=== PATIENT | female | born 1970 | race Caucasian/White ===

== ENCOUNTER → 2024-01-19 07:47 | Outpatient (CLI) | payer SELFPAY ==
--- NOTE | 2024-01-19 07:54 | DI.US.S_ITS ---
PROCEDURE: US THYROID INDICATIONS: HISTORY OF MALIGNANT THYROID CANCER/LEFT THYROIDECTOMY TECHNIQUE: Real-time scanning was performed of the thyroid gland, with image documentation. COMPARISON: None. FINDINGS: Thyroid: Right lobe measures 5.4 x 1.9 x 1.9 cm. Left lobe is absent. Isthmus is 0.3 cm thick. Echotexture is homogeneous. No suspicious mass within the left thyroidectomy bed. No adenopathy in the left neck. Normal right central chain lymph nodes which maintain a normal reniform shape, favoring a benign etiology. IMPRESSION: Left thyroidectomy, without evidence local recurrence. Dictated by: Hang Stover M.D. on 01/19/2024 at 11:16 Approved by: Hang Stover M.D. on 01/19/2024 at 11:17
--- NOTE | 2024-01-19 08:27 | DI.CT.S_ITS ---
PROCEDURE: CT CHEST W CON INDICATIONS: Malignant neoplasm of thyroid gland; TECHNIQUE: After the administration of intravenous contrast, 5 mm thick sections acquired from the pulmonary apices to the posterior costophrenic angles. 1 mm axial lung, 5 mm thick coronal and sagittal reformats and 7 mm axial MIP were acquired. For radiation dose reduction, the following was used: automated exposure control, adjustment of mA and/or kV according to patient size. COMPARISON: None. FINDINGS: Image quality: Diagnostic. Lower Neck: No enlarged lymph nodes. Thyroid: Left thyroidectomy. Axillae: No enlarged lymph nodes. Chest Wall: Unremarkable. Bones: Unremarkable. Lungs and Pleura: No pneumothorax or pleural effusions. Volume loss and bronchiectasis with tree-in-bud nodules in the lingula and right middle lobe. Small number of centrilobular nodules in the dependent lower lobes, largest measuring 5 millimeters in the left lower lobe (series 3, image 316). Bronchial secretions. Heart: Heart size is normal. No pericardial effusion. Thoracic Vessels: The aorta and pulmonary arteries demonstrate normal size. Mediastinum and Mary: No enlarged lymph nodes. Esophagus: No wall thickening. No hiatal hernia. Upper Abdomen: Visualized upper abdomen solid organs and bowel loops appear normal. IMPRESSION: Left thyroidectomy. 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 Superimposed centrilobular nodules in the dependent lower lobes, also likely representing infectious or inflammatory bronchiolitis. Three-month follow-up could be obtained to exclude pulmonary metastatic disease. Dictated by: Hang Stover M.D. on 01/19/2024 at 11:09 Approved by: Hang Stover M.D. on 01/19/2024 at 11:15
== END ==
PROVIDERS: Family Provider Internal Medicine; PCP Family Medicine; Referring Provider Family Medicine; Visit Provider Family Medicine
DX: C73 Malignant neoplasm of thyroid gland (principal); R91.8 Other nonspecific abnormal finding of lung field; E04.1 Nontoxic single thyroid nodule; J47.9 Bronchiectasis, uncomplicated
CPT/HCPCS: 71260; 76536; Q9967

== ENCOUNTER 2024-03-22 10:25 | Day surgery (SDC) | payer SELFPAY ==
[2024-03-22 10:59] VITALS: BP 134/83; PULSE 70; RESP 14; TEMP 36.8; O2SAT 95
[2024-03-22] MEDS: LACTATED RINGERS 1,000 ML 42 ML IV (11:06)
--- NOTE | 2024-03-22 11:27 | PM.PREOP ---
Pre-operative Note Interval Note History & Physical reviewed/Exam performed by Physician: Yes Changes to H&P: No ASA Class (for procedural sedation): II
--- NOTE | 2024-03-22 11:43 | PM.OP.COLON ---
Operative Date/Time/Diagnoses Date of procedure: 03/22/24 Pre-op diagnosis: See indication and findings Procedure & Clinicians Study performed: Colonoscopy Indications: History of ?polyps? 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 She has been getting yearly colonoscopies since. Surgeon: Rolando Garces Procedure Notes Procedure in detail: After informed consent was obtained the patient was placed in left lateral decubitus position. The video colonoscope was introduced the rectum slowly advanced cecum. Preparation was excellent. On slow withdrawal mucosa was carefully examined. The scope was removed. The patient tolerated procedure well. Blood loss none Complications none Sedation mac Findings 1. Normal colonoscopy to cecum 2. Careful evaluation with retro flexed view in the rectum performed with no evidence of residual lesion I do not necessarily think that it patient needs follow-up colonoscopy on a yearly basis but I would want to get a complete records before making that decision
[2024-03-22 11:45] VITALS: BP 89/59; PULSE 71; RESP 20; TEMP 36.7; O2SAT 92
[2024-03-22 11:50] VITALS: BP 94/54; PULSE 65; RESP 18; O2SAT 92
[2024-03-22 11:56] VITALS: BP 92/59; PULSE 60; RESP 19; O2SAT 93
[2024-03-22 12:10] VITALS: BP 103/75; PULSE 66; RESP 13; TEMP 36.3; O2SAT 96
[2024-03-22 12:24] VITALS: BP 106/77; PULSE 68; RESP 14; O2SAT 98
== END 2024-03-22 12:26 | disposition home or self-care (01) ==
PROVIDERS: Family Provider Internal Medicine; PCP Family Medicine; Referring Provider Internal Medicine Gastroenterology; Visit Provider Internal Medicine Gastroenterology
PROC: 0DJD8ZZ Inspection of Lower Intestinal Tract, Via Natural or Artificial Opening Endoscopic (ICD-10-PCS; CPT 45378; principal; 2024-03-22 11:00)
DX: Z12.11 Encounter for screening for malignant neoplasm of colon (principal); Z86.010 Personal history of colon polyps
CPT/HCPCS: 45378; J2704